=== PATIENT | female | born 2000 | race Caucasian/White ===

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

== ENCOUNTER 2022-07-06 11:03 | Emergency (ER) | payer BC, SELFPAY ==
[2022-07-06 11:12] VITALS: BP 119/69; PULSE 90; RESP 16; TEMP 36.8; O2SAT 99
[2022-07-06 11:21] VITALS: BP 119/69; PULSE 90; RESP 16; TEMP 36.8; O2SAT 99
--- NOTE | 2022-07-06 11:29 | ED.URI ---
HPI - URI/Sore Throat General Chief Complaint: Upper Respiratory Infection Stated Complaint: Sinus,Right Ear Irritation Time Seen by Provider: 07/06/22 11:25 Source: patient Mode of arrival: ambulatory Limitations: no limitations History of Present Illness HPI Narrative: Ms. Eisenberg is a 21-year-old female patient presenting to the clinic today with complaints of right ear discomfort and sinus drainage. She reports she has done 1 COVID test and it was negative at home. Symptoms have been ongoing for about 3 to 4 days. She denies any fever or chills. Reports right-sided throat pain MD elicited complaint: sore throat and nasal congestion Related Data Home Medications Medication Instructions Recorded Confirmed norethindrone acetate 1.5 1 tablet PO DAILY 08/16/20 08/16/20 mg-ethinyl estradiol 30 mcg tablet (Aurovela) Allergies Allergy/AdvReac Type Severity Reaction Status Date / Time Cephalosporins Allergy Mild Itching Verified 07/06/22 11:21 cefdinir Allergy Unknown Rash Verified 07/06/22 11:21 CEFAZOLIN SODIUM Allergy Intermediate HIVES Uncoded 07/06/22 11:21 Review of Systems Review of Systems: Pertinent positives per HPI. Patient denies any fever, chills, rash, headache, visual changes, dizziness, shortness of breath, chest pain, palpitations, nausea, vomiting, diarrhea, constipation, abdominal pain, or any urinary issues. PMFSH Past Medical History Medical History Chronic ear infection Surgical History Surgical History Hx of tympanostomy tubes Social History Social History Smoking status: Never smoker Alcohol intake: never Substance use: never Gender identity (if verbalized by the patient): Female Comments At the time of my signature, I reviewed and agree with the nursing past medical, surgical, social, and family history. There is no relevant family history pertinent to the patient complaint. Exam Narrative: General: Well-developed, well nourished, in no apparent distress Head: Normocephalic, atraumatic Eyes: Pupils equally round and reactive to light bilaterally, EOM intact, sclera and conjunctive clear, no discharge, lids normal Ears: Right TMs intact and dull, with fluid behind the TM, left TM intact and clear ear canals clear, no drainage, grossly hearing normal. Tenderness to palpation over the right eustachian tube Nose: Nares patent, clear nasal discharge, moderate inflammation, no sinus tenderness. Mouth: Oral pharynx without lesions or masses, good dentition, MMM. Postnasal drip, Neck: Supple, trachea midline, no enlargement of anterior or posterior cervical nodes, no thyroid masses or goiter palpable. Cardio: Regular rate and rhythm, s1 and s2 normal, no murmur appreciated. Resp: Clear to auscultation bilaterally, no rhonchi, rales, wheezing or rubs Course Course Emergency Course: Portions of this record may have been created with voice recognition software. Level of Care: Express Care Visit Vital Signs Vital signs: Vital Signs Temperature 36.8 C 07/06/22 11:12 Pulse Rate 90 07/06/22 11:12 Respiratory Rate 16 07/06/22 11:12 Blood Pressure 119/69 07/06/22 11:12 Pulse Oximetry 99 07/06/22 11:12 Oxygen Delivery Room Air 07/06/22 11:12 Temperature 36.8 C 07/06/22 11:21 Pulse Rate 90 07/06/22 11:21 Respiratory Rate 16 07/06/22 11:21 Blood Pressure 119/69 07/06/22 11:21 Pulse Oximetry 99 07/06/22 11:21 Oxygen Delivery Room Air 07/06/22 11:21 Vital signs reviewed MDM - URI/Sore Throat MDM Narrative Medical decision making narrative: At the time of visit patient is resting comfortably on the exam table. She is already done an at home COVID test and it was negative. I suspect the patient has serous otitis with postnasal drip and upper res
== END 2022-07-06 11:35 | disposition home or self-care (01) ==
PROVIDERS: Emergency Provider Nurse Practitioner Family; PCP Hospitalist
DX: J06.9 Acute upper respiratory infection, unspecified (principal); H69.81 Other specified disorders of Eustachian tube, right ear; H65.01 Acute serous otitis media, right ear; R09.82 Postnasal drip
CPT/HCPCS: 99213; G0463

== ENCOUNTER 2022-07-11 14:12 | Emergency (ER) | payer BC, SELFPAY ==
--- NOTE | 2022-07-11 14:16 | ED.URI ---
HPI - URI/Sore Throat General Chief Complaint: Upper Respiratory Infection Stated Complaint: states that her symptoms never went aw Time Seen by Provider: 07/11/22 14:37 Source: patient and RN notes reviewed Mode of arrival: ambulatory Limitations: no limitations History of Present Illness HPI Narrative: 21-year-old female presents with concern for 8-day history of ear pain, sore throat, sinus congestion, drainage. She reports she has taken a course of steroids without relief. She reports she has been using ibuprofen and antihistamine at home. She denies fever, bodies, chills, sweats. Reports generalized MD elicited complaint: sore throat, rhinorrhea and nasal congestion Related Data Home Medications Medication Instructions Recorded Confirmed norethindrone acetate 1.5 1 tablet PO DAILY 08/16/20 07/11/22 mg-ethinyl estradiol 30 mcg tablet (Aurovela) duloxetine 60 mg capsule,delayed 60 mg PO DIRECTED 07/11/22 07/11/22 release prednisone 20 mg tablet 20 mg DIRECTED 07/11/22 07/11/22 Allergies Allergy/AdvReac Type Severity Reaction Status Date / Time Cephalosporins Allergy Mild Itching Verified 07/06/22 11:21 cefdinir Allergy Unknown Rash Verified 07/06/22 11:21 CEFAZOLIN SODIUM Allergy Intermediate HIVES Uncoded 07/06/22 11:21 Review of Systems Review of Systems: CONSTITUTIONAL: Reports malaise. Denies chills, sweats, or fever. EYES: Denies visual changes, redness, or discharge. ENT: Reports rhinorrhea, congestion, sinus pain, otalgia and sore throat. CARDIOVASCULAR: Denies chest pain, palpitations, or edema. RESPIRATORY: Denies cough. Denies dyspnea. GASTROINTESTINAL: Denies abdominal pain, nausea, vomiting, diarrhea SKIN: Denies rash or itching. MUSCULOSKELETAL: Denies myalgia. NEUROLOGIC: Reports headache. All systems reviewed & are unremarkable except as noted in HPI and below PMFSH Past Medical History Medical History Chronic ear infection Surgical History Surgical History Hx of tympanostomy tubes Social History Social History (Reviewed 07/06/22 @ 11:54 by CANELO Doty Smoking status: Never smoker Alcohol intake: never Substance use: never Gender identity (if verbalized by the patient): Female Comments At time of signature, agree with nursing past medical, surgical, social and family history. There is no relevant family history pertinent to the presenting complaint Exam Narrative: GENERAL: Nontoxic appearing and in no acute distress. HEAD: Normocephalic EYES: PERRLA, conjunctivae clear ENT: Nares clear, turbinates edematous and erythematous, yellow discharge. Mucous membranes moist. TM pearly roque with dull light reflex bilaterally; no tragal tenderness. Oropharynx not erythematous without lesions. Tonsils not enlarged and without exudate, no drooling, no hoarseness, no trismus, uvula midline. NECK: Supple. No lymphadenopathy CHEST: Clear to auscultation, breath sounds equal. No wheezing, rhonchi, rales, or stridor. No respiratory distress, speaks in full sentences. HEART: Regular rate and rhythm. No murmur heard. SKIN: Warm, dry, no rash. NEURO: Alert and oriented x3. PSYCH: Normal mood and affect Course Course Emergency Course: Patient is aware of diagnosis, understands and agrees to treatment plan. Anticipatory guidance given. Patient agrees to follow-up as directed and is aware of reasons to seek care at the emergency department. Portions of this record may have been created with voice recognition software Level of Care: Express Care Visit Vital Signs Vital signs: Reviewed. MDM - URI/Sore Throat MDM Narrative Medical decision making narrative: Differential diagnosis considered: Blake virus, strep pharyngitis, allergic rhinitis, upper respiratory tract infection, sinusitis, rhinosinusitis, nasopharyngitis. viral pharyngitis,
[2022-07-11 14:21] VITALS: BP 127/72; PULSE 71; RESP 18; TEMP 36.7; O2SAT 100
== END 2022-07-11 14:55 | disposition home or self-care (01) ==
PROVIDERS: Emergency Provider Nurse Practitioner; PCP Hospitalist
DX: J01.90 Acute sinusitis, unspecified (principal); B96.89 Other specified bacterial agents as the cause of diseases classified elsewhere
CPT/HCPCS: 99213; G0463

== ENCOUNTER 2023-03-29 16:42 | Emergency (ER) | payer BC, SELFPAY ==
--- NOTE | ~2023-03-29 | XR_ITS ---
EXAMINATION: XR foot LT min 3V DATE: 03/29/2023 17:37 INDICATION: Left foot pain TECHNIQUE: Dorsoplantar, lateral, and 2 oblique views of the left foot were obtained. COMPARISON: None. FINDINGS: No fracture, dislocation, or subluxation. The bones, soft tissues, and joint spaces are normal. IMPRESSION: 1. No acute osseous abnormality. Reviewed, dictated and finalized at location F.
[2023-03-29 17:05] VITALS: BP 136/83; PULSE 66; RESP 20; TEMP 36.6; O2SAT 100
--- NOTE | 2023-03-29 18:11 | ED.GENADULT ---
HPI - General Adult General Chief complaint: Extremity Injury, Lower Stated complaint: left foot injury Time Seen by Provider: 03/29/23 18:10 History of Present Illness HPI narrative: Bo Eisenberg is a 22 y/o female who presents with reports of accidentally running in to a PVC pipe today and landed on her left foot wrong and started to have pain to the top of her foot. She denies LOC, denies any other injuries, she does not think she rolled her ankle, she does not have any pain to her ankle. Fall happened at around 0800 today and she thought it would improve but it hasn't. Related Data Home Medications Medication Instructions Recorded Confirmed norethindrone acetate 1.5 1 tablet PO DAILY 08/16/20 07/11/22 mg-ethinyl estradiol 30 mcg tablet (Aurovela) duloxetine 60 mg capsule,delayed 60 mg PO DIRECTED 07/11/22 07/11/22 release prednisone 20 mg tablet 20 mg DIRECTED 07/11/22 07/11/22 Allergies Allergy/AdvReac Type Severity Reaction Status Date / Time Cephalosporins Allergy Mild Itching Verified 03/29/23 17:08 cefdinir Allergy Unknown Rash Verified 03/29/23 17:08 CEFAZOLIN SODIUM Allergy Intermediate HIVES Uncoded 03/29/23 17:08 Review of Systems Review of Systems: CONSTITUTIONAL: Denies fever, chills, or sweats. EYES: Denies visual changes, redness, or discharge. ENT: Denies rhinorrhea, congestion, sore throat, or otalgia. CARDIOVASCULAR: Denies chest pain, palpitations, or edema. RESPIRATORY: Denies cough or dyspnea. GASTROINTESTINAL: Denies abdominal pain, nausea, vomiting, or diarrhea. GENITOURINARY: Denies dysuria or hematuria. SKIN: Denies rash or itching. MUSCULOSKELETAL: Denies back pain,complains of right foot pain to the top and a little on the bottom of her foot. NEUROLOGIC: Denies headache, numbness, dizziness, or weakness. PSYCHIATRIC: Denies anxiety or depression. [facility] Past Medical History Medical History Chronic ear infection Surgical History Surgical History Hx of tympanostomy tubes Social History Social History Smoking status: Never smoker Alcohol intake: never Substance use: never Living arrangements: with family Occupation/Education: student Gender identity (if verbalized by the patient): Female Exam Narrative: GENERAL: Well-appearing, well-nourished, and in no acute distress. HEAD: Normocephalic, atraumatic. EYES: PERRLA and EOMI. ENT: Nares clear, no rhinorrhea or epistaxis. Mucous membranes moist NECK: Supple. No adenopathy or masses. No carotid bruits or JVD CHEST: Clear to auscultation. No respiratory distress. No wheezes rales or rhonchi HEART: Regular rate and rhythm. No murmur heard. Normal peripheral pulses. ABDOMEN: Soft, nontender, nondistended, normal active bowel sounds. EXTREMITIES: Normal range of motion, pedal pulses intact SKIN: Warm, dry, no rash. NEURO: No focal deficits. Alert and oriented x3. PSYCH: Normal mood and affect. Course Vital Signs Vital signs: Vital Signs Temperature 36.6 C 03/29/23 17:05 Pulse Rate 66 03/29/23 17:05 Respiratory Rate 20 03/29/23 17:05 Blood Pressure 136/83 03/29/23 17:05 Pulse Oximetry 100 03/29/23 17:05 Oxygen Delivery Room Air 03/29/23 17:05 Temperature 36.6 C 03/29/23 17:05 Pulse Rate 66 03/29/23 17:05 Respiratory Rate 20 03/29/23 17:05 Blood Pressure 136/83 03/29/23 17:05 Pulse Oximetry 100 03/29/23 17:05 Oxygen Delivery Room Air 03/29/23 17:05 vitals reviewed by me. Medical Decision Making MDM Narrative Medical decision making narrative: On exam I did not appreciate much swelling to her foot. Pain was reproducible to the dorsum aspect of the first and second metatarsals also to the bottom right lateral aspect. No obvious deformity pt able to bear weight No pain to ankle with
[2023-03-29] MEDS: ACETAMINOPHEN 500 MG TABLET 1000 MG PO (18:27)
[2023-03-29] MEDS: KETOROLAC 30 MG/ML VIAL (*BKC) IM (18:27)
== END 2023-03-29 18:33 | disposition home or self-care (01) ==
PROVIDERS: Emergency Provider Nurse Practitioner Family; PCP Hospitalist
DX: S93.602A Unspecified sprain of left foot, initial encounter (principal); W22.8XXA Striking against or struck by other objects, initial encounter
CPT/HCPCS: 73630; 96372; 99283; A9270; J1885